=== PATIENT | male | born 1980 | race Caucasian/White ===

== ENCOUNTER 2018-09-02 07:03 | Emergency (ER) | payer SELFPAY ==
[~2018-09-02] VITALS: Ht 167.6 cm; Wt 75.7 kg
[2018-09-02 07:11] VITALS: Ht 167.6 cm; Wt 75.7 kg
[2018-09-02 07:49] LABS: BASOPHIL % 0.4 % (0-2); PLATELET COUNT 224 x10^3mcL (130-400); RED CELL DISTRIBUTION WIDTH 13.6 % (11.5-14.5)
[2018-09-02 07:51] LABS: CALCIUM 8.9 mg/dL (8.5-10.1); CARBON DIOXIDE 26.3 mmol/L (21-32); CHLORIDE SERUM 105 mmol/L (98-107); CREATININE SERUM 1.1 mg/dL (0.7-1.3); GFR1 > 60 mL/min; GLUCOSE SERUM 103 mg/dL (74-106); POTASSIUM SERUM 3.8 mmol/L (3.5-5.1); SODIUM SERUM 141 mmol/L (136-145)
[2018-09-02 07:55] LABS: ALBUMIN 3.8 g/dL (3.4-5.0); ALKALINE PHOSPHATASE 61 U/L (46-116); ALT/SGPT 39 U/L (16-63); AMYLASE 52 U/L (25-115); AST/SGOT 18 U/L (15-37); BILIRUBIN TOTAL 0.84 mg/dL (0.20-1.00); LIPASE 107 IU/L (73-393); TOTAL PROTEIN, SERUM 7.5 g/dL (6.4-8.2)
[2018-09-02 11:11] VITALS: BP 122/74
== END 2018-09-02 11:11 | disposition home or self-care (01) ==
LOC: ED 07:03
DX: R10.11 Right upper quadrant pain (principal); M25.511 Pain in right shoulder; R10.13 Epigastric pain
CPT/HCPCS: 36415